=== PATIENT | male | born 1995 | race American Indian/Alaskan Native ===

== ENCOUNTER 2018-05-06 13:53 | Emergency (ER) | payer MEDICAID ==
[2018-05-06 14:00] VITALS: O2SAT 98
[2018-05-06] MEDS ORDERED: Sodium Chloride 0.9% 1,000 ML IV ONE (14:33)
[2018-05-06 14:51] LABS: BASO % 0.4 % (0.0-2.0); HEMOGLOBIN 14.2 g/dL (12.0-18.0); LYMPH # 0.9 K/uL (1.0-4.3); LYMPH % 7.9 % (20.0-40.0); MEAN CELL VOLUME 84.9 fL (80.0-94.0); MEAN CORPUSCULAR HEMOGLOBIN 27.9 pg (27.0-31.0); MEAN CORPUSCULAR HGB CONC 32.9 g/dL (33.0-37.0); MEAN PLATELET VOLUME 9.3 fL (7.2-11.7); MONO # 0.7 K/uL (0.0-0.8); MONO % 6.1 % (0.0-10.0); NEUT # 10.3 K/uL (1.8-7.0); NEUT % 85.6 % (50.0-75.0); NRBC % 0.1 % (0.0-2.0); PLATELET COUNT 219 K/uL (130-400); RED CELL DISTRIBUTION WIDTH 13.6 % (11.5-14.5)
[2018-05-06 15:05] LABS: URINE BILIRUBIN NEGATIVE (NEGATIVE); URINE BLOOD NEGATIVE (NEGATIVE); URINE CLARITY Clear (Clear); URINE COLOR Yellow (YELLOW); URINE GLUCOSE (UA) NORMAL (Normal); URINE LEUKOCYTE ESTERASE NEG Leu/uL (Negative); URINE PROTEIN NEGATIVE (NEGATIVE)
[2018-05-06 15:06] LABS: ALB/GLOB RATIO 1.7 (1.0-2.1); ALBUMIN 5.5 g/dL (3.5-5.0); ALT/SGPT 45 U/L (21-72); AST/SGOT 65 U/L (17-59); BLOOD UREA NITROGEN 17 mg/dL (9-20); CALCIUM 9.9 mg/dl (8.6-10.4); GFR AFRICAN-AMERICAN > 60; GFR NON-AFRICAN AMERICAN > 60; LIPASE 43 U/L (23-300)
[2018-05-06 15:18] LABS: EOSINOPHIL 1 % (0-4); LYMPHOCYTE 8 % (20-40); MONOCYTE 5 % (0-10); NEUTROPHIL 86 % (50-75); PLATELET ESTIMATE NORMAL (NORMAL); TOTAL CELLS COUNTED 100
--- NOTE | 2018-05-06 16:25 | C.PDOC ---
History Of Present Illness 23 yo male c/o nausea, vomiting and abdominal pain sine this morning. Pt states "I drank too much". Admits that he was drinking at 2 am this morning, went to sleep and woke up with morning with n/v/ and abdominal pain. Denies fever, chest pain, diarrhea, dysuria, urinary frequency or testicular pain. Time Seen by Provider: 05/06/18 14:04 Chief Complaint (Nursing): Abdominal Pain History Per: Patient History/Exam Limitations: no limitations Onset/Duration Of Symptoms: Hrs Current Symptoms Are (Timing): Still Present Context: Other (ETOH) Location Of Pain/Discomfort: Diffuse Quality Of Discomfort: Cramping Past Medical History Vital Signs: Last Vital Signs Temp 97.9 F 05/06/18 13:58 Pulse 79 05/06/18 13:58 Resp 16 05/06/18 13:58 BP 139/53 L 05/06/18 13:58 Pulse Ox 98 05/06/18 16:25 Family History: States: Unknown Family Hx - Social History Hx Alcohol Use: Yes Hx Substance Use: No - Immunization History Hx Tetanus Toxoid Vaccination: No Hx Influenza Vaccination: No Hx Pneumococcal Vaccination: No Review Of Systems Except As Marked, All Systems Reviewed And Found Negative. Gastrointestinal: Positive for: Nausea, Vomiting, Abdominal Pain Physical Exam - Physical Exam Appears: Well, Non-toxic, No Acute Distress Skin: Normal Color, Warm, Dry Head: Atraumatic, Normacephalic Eye(s): bilateral: Normal Inspection, EOMI Nose: Normal Oral Mucosa: Moist Neck: Normal, Normal ROM, Supple Chest: Symmetrical Cardiovascular: Rhythm Regular Respiratory: Normal Breath Sounds, No Accessory Muscle Use Gastrointestinal/Abdominal: Soft, Tenderness (diffuse) Back: Normal Inspection, No CVA Tenderness Extremity: Normal ROM Neurological/Psych: Oriented x3, Normal Speech ED Course And Treatment - Laboratory Results Result Diagrams: 05/06/18 14:45 05/06/18 14:45 O2 Sat by Pulse Oximetry: 98 Progress Note: Zofran, pepcid and toradol ordered. On re-evaluation, pt notes he feels "much" better and requests to be discharge. Abdomen soft, nontender. TOlerating PO. Discussed limitations of work up and instructed to return to ER if symptoms persist or worsen. Disposition - Disposition Disposition: HOME/ ROUTINE Disposition Time: 16:24 Condition: STABLE Additional Instructions: Follow up with PMD in 1-2 days. Return to ER if symptoms persist or worsen. Prescriptions: Famotidine [Pepcid] 20 mg PO BID #10 tab Ondansetron ODT [Zofran ODT] 1 odt PO BID PRN #6 odt PRN Reason: Nausea/Vomiting Instructions: Viral Gastroenteritis, Adult (DC) Forms: [facility] (French) - Clinical Impression Clinical Impression: Abdominal pain, Vomiting
[2018-05-06 17:04] VITALS: BP 130/59; PULSE 71; RESP 18; TEMP 97.4
== END 2018-05-06 17:04 | disposition home or self-care (01) ==
LOC: C.ER 13:53
DX: R10.9 Unspecified abdominal pain (principal); R11.10 Vomiting, unspecified
CPT/HCPCS: 80053; 81001; 83690; 85025; 96374; 96375; 99284; C9113; J1885; J2405; J7030